=== PATIENT | male | born 1945 | race Caucasian/White ===

== ENCOUNTER 2016-11-01 15:44 | Emergency (ER) | payer MEDICARE ==
[~2016-11-01] VITALS: Ht 167.6 cm; Wt 84.1 kg
[~2016-11-01 15:44] MED LIST: OXYC1TAB24 PO
[2016-11-01 15:47] VITALS: BP 133/85; PULSE 95; RESP 15; O2SAT 95
--- NOTE | 2016-11-01 16:03 | ED.REPORT ---
HPI-Extremity Problem Lower Date of Service November 01, 2016 ED Provider: Ilir Joseph PA-C Bryant is a 71-year-old male with a history of neuropathy and prediabetes presenting with a chief complaint of left ankle pain. Patient reports the pain began suddenly when he inverted his ankle while working in his garden. He fell to the ground and has been unable to walk on the ankle since then. Reports pain , swelling and reduced range of motion. Reports numbness and tingling in his toes and the base of his foot which is at baseline for his neuropathy. Nursing Notes Stated Complaint: LEFT ANKLE INJURY Chief Complaint: Extremity Trauma Nursing Notes Reviewed: Yes Allergies: Coded Allergies: No Known Allergies (Unverified , 11/01/16) Scheduled PRN oxyCODONE (oxyCODONE) 5 Mg Tablet 5 MG PO QID PRN PRN For Pain oxyCODONE-Acetaminophen 5-325 mg (oxyCODONE-Acetaminophen 5-325 mg) 1 Each Tablet 1-2 TAB PO Q6H PRN PRN For Pain General Time Seen by MD: 15:51 Chief Complaint Ankle injury left Past Medical History Past Medical History Pre-diabetic Peripheral neuropathy Past Surgical History unknown Family History noncontributory Smoking History Unknown if Ever Smoker Social History Recently moved to the area with his . Drug Use: Denies drug use Other Social History: Good social support, Ambulatory Status Independent Review of Systems Review of Systems Note: Negative unless stated otherwise in history of present illness Physical Exam General: Well appearing, well developed, well nourished, no acute distress. Left ankle: Clearly swollen when compared to right. Negative bruising, redness , heat. Tender over medial malleoli, deltoid ligament. Nontender over the navicular, base of fifth metatarsal, anterior talofibular, calcaneofibular, posterior talofibular ligaments. DP pulse 2+, PT pulses appreciated. Toes warm with brisk capillary refill. Numbness and the sole of his foot and toes which is at baseline for him. Head: Atraumatic, normocephalic. Eyes: No scleral icterus or injection. No discharge. Vision grossly intact. ENT: Voice clear, hearing grossly intact. Respiratory: No respiratory distress, no increased work of breathing. Speaks in complete sentences. Skin: Warm and dry. Neurological: Grossly nonfocal. Psychological: alert and oriented. Speech appropriate, linear and logical. Behavior appropriate. Initial Vital Signs Vital Signs (First) Date Time Temp Pulse Resp B/P Pulse Ox O2 Delivery O2 Flow Rate FiO2 11/01/16 15:47 36.8 95 15 133/85 95 Room Air Initial VS: Vital signs normal Interpretation & Diagnostics X-Ray Interpretation Xray Interpretation: PROCEDURE: X-RAY LEFT ANKLE, MINIMUM THREE VIEWS ([id number]) INDICATIONS: left ankle pain IMPRESSION: Mildly laterally displaced intra-articular distal fibular fracture and distal medial malleolus avulsion fracture. Associated ligamentous injury with medial ankle mortise widening. Interpretation / Wet Read by: Interpret - Radiologist, Interp - AHP Procedures Splint Application - Fx Mgt Procedure Performed by: Milk Powder Grinder Precise Anatomic Location: Left posterior leg with stirrup Type of Immobilization: Ortho-glass Post-Procedure / Complications: Cap refill normal, Post splint neuro nl, Condition improved, Tolerated procedure well, Patient stable Re-Eval/Medical Decision Med Decision/Clinical Course Otherwise healthy 71-year-old male presents with chief complaint of left ankle pain that began suddenly at shift his weight home working in his garden. He reports inverting his ankle. He reports falling to the ground and not being able to walk on the ankle afterwards. Physical exam reveals swelling and severe medial malleolar tenderness. Neuro vascularly intact. X-ray reveals a mildly displaced lateral malleolar fracture. Patient is placed in a posterior leg splint with stirrup by technicians. Inspected by me, capillary refill and sensation is confirmed. Instructed regarding use of crutches, [id number] analgesia. A prescription for small amount of oxycodone is provided with precautions. Provided orthopedic follow-up referral, emergency return precautions. Patient verbalizes understanding of and consent to the plan. Discharge & Departure Impression: Primary Impression: Fibula fracture Encounter type: initial encounter Fibula location: lateral malleolus Fracture type: closed Fracture alignment: displaced Laterality: left Qualified Code: S82.62XA - Displaced fracture of lateral malleolus of left fibula, initial encounter for closed fracture Disposition: Home Discharge Condition All VS Reviewed: Yes Condition: Stable Patient Instructions: Splint Care (ED), Crutch Instructions (ED) Additional Instructions: Evaluation for left ankle pain in the emergency department consists of history, physical examination and x-rays which reveal a fractured ankle. There does not appear to be any damage to blood vessels or nerves. This will require follow-up with orthopedic surgeon. I will provide you with a referral. Please contact them early on Friday to arrange to be seen. We have placed the ankle in a splint. This is to remain on and dry until you are seen by the orthopedic surgeon. We will have also given you crutches. Do not bear weight on the affected ankle. The pain is best treated with 600 mg of ibuprofen (Advil, Motrin) every 6 hours , or 1000 mg of acetaminophen (Tylenol) every 6 hours. These drugs can be taken at the same time for more severe pain. I will write a prescription for a small amount of oxycodone to be taken every 4-6 hours for pain not controlled by these other medications. Please do not drive or drink alcohol within 4 hours of taking this medication. Return to the emergency department for any new or worsening symptoms including increasing pain or the development of a cold/numb foot. Referrals: Sacha Dumont MD EDSupervising Provider for [facility]: Carlos Bray MD copies to: Pollo Modi MD, Seth PA-C November 01, 2016 16:03
--- NOTE | 2016-11-01 16:28 | DRSVH ---
PROCEDURE: X-RAY LEFT ANKLE, MINIMUM THREE VIEWS ([id number]) INDICATIONS: left ankle pain TECHNIQUE: 3 views of the ankle were acquired. COMPARISON: None. FINDINGS: Bones: Mildly laterally displaced oblique intra-articular distal fibular metaphyseal fracture. There is widening of the medial mortise. Medial malleoli tip avulsion fracture. Soft tissue swelling. Soft tissues: No tibiotalar joint effusion. Achilles tendon appears normal. IMPRESSION: Mildly laterally displaced intra-articular distal fibular fracture and distal medial malleolus avulsi on fracture. Associated ligamentous injury with medial ankle mortise widening. Dictated by: Rashaun Montalvo [facility] Interpreted: Shreyas Acosta MD on 11/01/2016 at 16:25 Transcribed by: LALY on 11/01/2016 at 16:27 Approved by: Shreyas Acosta M.D. on 11/01/2016 at 16:30
[2016-11-01] MEDS ORDERED: OXYC5TAB72 PO (17:28)
[2016-11-01 18:46] VITALS: BP 124/80; PULSE 75; RESP 16; O2SAT 95
[2016-11-06] MEDS ORDERED: GABA-502 PO (15:19)
[2016-11-06] MEDS ORDERED: ASPI-973 PO (15:19)
[2016-11-06] MEDS ORDERED: PANT40TA2 PO (15:19)
[2016-11-06] MEDS ORDERED: UBID100T7 PO (15:19)
[2016-11-06] MEDS ORDERED: DULO60CA61 PO (15:19)
[2016-11-06] MEDS ORDERED: CALC650T19 PO (15:19)
[2016-11-06] MEDS ORDERED: VITA150T PO (15:19)
[2016-11-06] MEDS ORDERED: CHOL200047 PO (15:19)
[2016-11-06] MEDS ORDERED: PYR50 PO (15:19)
[2016-11-06] MEDS ORDERED: ATRV10T PO (15:19)
[2016-11-06] MEDS ORDERED: METF500T7 PO (15:19)
[2016-11-06] MEDS ORDERED: TRAZ-118 PO (15:19)
== END 2016-11-01 18:47 | disposition home or self-care (01) ==
LOC: SED 15:44
DX: S82.842A Displaced bimalleolar fracture of left lower leg, initial encounter for closed fracture (principal); W18.39XA Other fall on same level, initial encounter; Y93.89 Activity, other specified; Y92.007 Garden or yard of unspecified non-institutional (private) residence as the place of occurrence of the external cause; Y99.8 Other external cause status; R20.0 Anesthesia of skin; R20.2 Paresthesia of skin
CPT/HCPCS: 29515; 73610; 96372; 99284; J1885